=== PATIENT | male | born 1985 | race Asian ===

== ENCOUNTER 2023-04-16 04:24 | Inpatient (IN) | payer BC ==
[2023-04-16] MEDS ORDERED: Ondansetron ODT 4 MG TAB PO PRN (05:25)
[2023-04-16] MEDS ORDERED: Ondansetron PF 4 MG/2 ML Vial IVP PRN (05:25)
[2023-04-16 05:51] VITALS: BMI 23.9
[2023-04-16 07:07] LABS: #Monocytes 0.4 thou/uL (0.11-0.59); #Neutrophils 12.9 thou/uL (1.40-6.50); %Basophils 0.2 % (0.0-1.0); %Eosinophils 0.1 % (0.0-10.0); %Lymphocytes 4.8 % (21.0-51.0); %Monocytes 2.8 % (0.0-10.0); %Neutrophils 91.7 % (42.0-75.0); Hematocrit 40.6 % (42.0-52.0); Mean Corpuscular HGB CONC 34.5 g/dL (32.0-36.0); Mean Corpuscular Hemoglobin 31.4 pg (27.0-31.0); Mean Platelet Volume 9.6 fL (7.4-10.4); Platelet Count 179 10x3/uL (130-400); RBC Distribution Width 11.5 % (11.5-14.5); Red Blood Cell (RBC) Count 4.46 mill/uL (4.70-6.10); White Blood Cell (WBC) Count 14.1 10x3/uL (4.8-10.8)
[2023-04-16 07:24] LABS: Anion Gap 10 mmol/L (10-20); BUN (Urea Nitrogen) 10 mg/dL (8.9-20.6); Calc. Creatinine Clearance 116 mL/min (70-130); Calcium 8.8 mg/dL (7.8-10.44); Carbon Dioxide 27 mmol/L (22-29); Chloride 106 mmol/L (98-107); Estimated GFR 116; Glucose 118 mg/dL (70-105); Potassium 4.3 mmol/L (3.5-5.1); Sodium 139 mmol/L (136-145)
[2023-04-16] MEDS ORDERED: Acetaminophen 325 MG TAB PO PRN (09:55)
[2023-04-16] MEDS ORDERED: Acetaminophen 650 MG Suppository PR PRN (09:55)
[2023-04-16] MEDS ORDERED: Morphine 2 MG/ML VIAL SLOW IVP PRN (09:56)
[2023-04-16] MEDS ORDERED: Electrolyte Replacement Protocol FS SCH (10:00)
[2023-04-16] MEDS: Sodium Chloride 0.9% 1,000 ML IV SCH ×2 (18:34→20:13)
[2023-04-16] MEDS ORDERED: diphenhydrAMINE 50 MG/ML VIAL IVP SCH (20:00)
[2023-04-17] MEDS: Sodium Chloride 0.9% 1,000 ML IV SCH ×2 (05:02→12:12)
[2023-04-17 05:13] LABS: #Eosinphils 0.1 thou/uL (0.0-0.7); #Monocytes 0.8 thou/uL (0.11-0.59); #Neutrophils 8.4 thou/uL (1.40-6.50); %Basophils 0.2 % (0.0-1.0); %Eosinophils 0.9 % (0.0-10.0); %Lymphocytes 11.9 % (21.0-51.0); %Monocytes 7.3 % (0.0-10.0); %Neutrophils 79.5 % (42.0-75.0); Hematocrit 38.2 % (42.0-52.0); Hemoglobin 12.7 g/dL (14.0-18.0); Mean Corpuscular HGB CONC 33.2 g/dL (32.0-36.0); Mean Corpuscular Hemoglobin 30.9 pg (27.0-31.0); Mean Corpuscular Volume 92.9 fl (78.0-98.0); Platelet Count 154 10x3/uL (130-400); RBC Distribution Width 11.3 % (11.5-14.5); Red Blood Cell (RBC) Count 4.11 mill/uL (4.70-6.10); White Blood Cell (WBC) Count 10.6 10x3/uL (4.8-10.8)
[2023-04-17 05:46] LABS: Anion Gap 9 mmol/L (10-20); BUN (Urea Nitrogen) 8 mg/dL (8.9-20.6); Calc. Creatinine Clearance 123 mL/min (70-130); Calcium 8.3 mg/dL (7.8-10.44); Carbon Dioxide 26 mmol/L (22-29); Chloride 107 mmol/L (98-107); Estimated GFR 118; Glucose 92 mg/dL (70-105); Potassium 3.6 mmol/L (3.5-5.1); Sodium 138 mmol/L (136-145)
[2023-04-17] MEDS ORDERED: MD-Gastroview 120 ML BOT ONE (06:25)
[2023-04-17] MEDS ORDERED: Pantoprazole 40 MG VIAL IVP SCH (09:00)
[2023-04-17 19:03] VITALS: BP 122/86; TEMP 98.1
== END 2023-04-17 19:35 | disposition home or self-care (01) | DRG 390 ==
LOC: T4-B 05:25 → OBSVTOIN 04-17 14:06
PROVIDERS: ADMIT Student in an Organized Health Care Education/Training Program; ATTEND Nurse Practitioner Family
PROC: 0D9670Z Drainage of Stomach with Drainage Device, Via Natural or Artificial Opening (ICD-10-PCS; principal; 2023-04-16)
DX: K56.609 Unspecified intestinal obstruction, unspecified as to partial versus complete obstruction (principal); D72.823 Leukemoid reaction
CPT/HCPCS: 36415; 74250; 80048; 85025; C9113; J1200; J7050; Q9963